=== PATIENT | male | born 1955 | race Caucasian/White ===

== ENCOUNTER 2025-01-14 10:10 | Day surgery (SDC) | payer MEDICARE, BC, SELFPAY ==
--- NOTE | 2025-01-13 06:00 | EKG_ITS ---
[facility] Test Date: 2025-01-13 Pat Name: MATTHEW CALVERT Department: Room: - Gender: Male [employer]: UTE : 1955 Requested By: Orion Castillo Order Number: [id number] Reading MD: Orion Castillo Measurements Intervals [place] Rate: 67 P: 48 UT: 172 QRS: -4 QRSD: 86 T: 51 QT: 370 QTc: 393 Interpretive Statements SINUS RHYTHM POSSIBLE ANTERIOR MYOCARDIAL INFARCTION , OF INDETERMINATE AGE Compared to ECG 06/06/2022 13:45:59 No significant changes /store/S0/[id number].pdf
[2025-01-13 14:01] LABS: INR 1.1 (0.9-1.3); Partial Thromboplastin Time 29.6 Seconds (22.0-36.0); Prothrombin Time 11.7 Seconds (9.0-12.2)
[2025-01-13 14:05] LABS: Alanine Aminotransferase 21 U/L (10-49); Albumin/Globulin Ratio 1.7 (1.2-2.2); Alkaline Phosphatase 57 U/L (46-116); Anion Gap 10 (7-16); Aspartate Amino Transferase 25 U/L (0-34); BUN/Creatinine Ratio 9 Ratio (12-20); Bilirubin,Total 0.6 mg/dL (0.3-1.2); Blood Urea Nitrogen 13 mg/dL (9-23); Calcium 10.3 mg/dL (8.3-10.6); Calcium (Corrected) 10.3 mg/dL (8.5-10.1); Carbon Dioxide 26.3 mMol/L (20.0-31.0); Chloride 105 mMol/L (98-107); Creatinine (Component) 1.5 mg/dL (0.6-1.3); Globulin 2.4 gm/dL (2.3-3.5); Glucose 80 mg/dL (74-106); Osmolality,Calculated 280 (275-295); Potassium 4.8 mMol/L (3.4-5.1); Sodium 141 mMol/L (136-145); Total Protein 6.4 gm/dL (5.7-8.2); eGFR 49 See Note
[2025-01-13 14:10] VITALS: BMI 39.1
[2025-01-14 10:50] VITALS: BP 179/83; PULSE 74; RESP 18; TEMP 36.3; O2SAT 96
[2025-01-14 11:59] VITALS: BP 142/125; PULSE 80; RESP 15; O2SAT 100
[2025-01-14 12:32] VITALS: BP 144/83; PULSE 67; RESP 22; TEMP 36.9; O2SAT 96
[2025-01-14 12:42] VITALS: BP 144/83; PULSE 67; RESP 22; O2SAT 96
[2025-01-14 12:52] VITALS: BP 150/85; PULSE 65; RESP 23; O2SAT 96
[2025-01-14 13:02] VITALS: BP 171/94; PULSE 65; RESP 20; O2SAT 96
== END 2025-01-14 13:30 | disposition home or self-care (01) ==
PROVIDERS: PCP Family Medicine; Referring Provider Specialist; Visit Provider Specialist
PROC: 0DBE8ZX Excision of Large Intestine, Via Natural or Artificial Opening Endoscopic, Diagnostic (ICD-10-PCS; CPT 45380; principal; 2025-01-14 11:30)
PROC: (CPT 43239; 2025-01-14 11:30)
DX: C18.4 Malignant neoplasm of transverse colon (principal); D12.2 Benign neoplasm of ascending colon; K56.690 Other partial intestinal obstruction; K64.9 Unspecified hemorrhoids; K62.1 Rectal polyp; C18.7 Malignant neoplasm of sigmoid colon; Z01.810 Encounter for preprocedural cardiovascular examination
CPT/HCPCS: 45385; 45381; 45380; 36415; 80053; 85610; 85730; 93005; A4649

== ENCOUNTER → 2025-01-20 | Outpatient (CLI) | payer MEDICARE, BC, SELFPAY ==
--- NOTE | 2025-01-20 16:13 | XR_ITS ---
Examination: CT abdomen and pelvis without contrast. Coronal 3-D reconstructions. Sagittal 2-D reconstructions. Date and time of exam:January 20, 2025 1711 hrs. Indications: Diagnosis malignant neoplasm of the colon today, hematochezia CTDI: vol (mGy): 17.6 DLP: (mGycm): 9 Technique: Axial images of the abdomen have been obtained, 3 mm slice thickness Intravenous contrast material has not been administered. Low dose protocols were performed. One or more of the following dose reduction techniques were used; automated exposure control, adjustment of the mA and/or KV according to patient size, use of iterative reconstruction technique. Findings: No focal liver or splenic lesions No abdominal or pelvic lymphadenopathy Cholelithiasis No pancreatic or adrenal mass Aorta normal size Severe bilateral renal parenchymal scar formation, severe atrophy left kidney Bilateral renal calculi, the largest right kidney 5 mm left kidney 4 mm Normal appendix Focal wall thickening in the transverse colon, subtle, axial image 95 Urinary bladder intact Transverse prostate dimension 5.5 cm Significant osteopenia Impression: Cholelithiasis Severe bilateral renal parenchymal scar formation Severe atrophy left kidney Bilateral nonobstructing renal calculi Normal appendix Subtle focal wall thickening in the transverse colon, axial image 95, clinical correlation advised
== END | disposition home or self-care (01) ==
PROVIDERS: PCP Family Medicine; Referring Provider Specialist; Visit Provider Specialist
DX: K80.20 Calculus of gallbladder without cholecystitis without obstruction (principal); N28.89 Other specified disorders of kidney and ureter; N20.0 Calculus of kidney; K63.89 Other specified diseases of intestine
CPT/HCPCS: 74176

== ENCOUNTER → 2025-01-21 | Outpatient (CLI) | payer MEDICARE, BC, SELFPAY ==
[2025-01-21 16:59] LABS: Basophils % (Auto) 1 % (0-2.5); Eosinophils # (Auto) 0.2 Thou/mm3 (0.0-0.5); Eosinophils % (Auto) 3 % (0-10); Immature Granulocytes % (Auto) 1 % (0-0); Immature Granulocytes Auto 0.03 Thou/mm3 (0.00-0.00); Lymphocytes # (Auto) 1.5 Thou/mm3 (1.0-4.8); Lymphocytes % (Auto) 23 % (10-50); Mean Corpuscular HGB Conc 32.5 g/dl (31.0-37.0); Mean Corpuscular Volume 80 fL (80-100); Monocytes # (Auto) 0.4 Thou/mm3 (0.0-0.8); Monocytes % (Auto) 6 % (0-12); Neutrophils # (Auto) 4.2 Thou/mm3 (1.8-7.7); Neutrophils % (Auto) 67 % (37-80); Nucleated Red Blood Cell % 0 /100 WBC (0); Platelet Count 195 Thou/mm3 (140-440); White Blood Count 6.3 Thou/mm3 (3.8-10.6)
[2025-01-21 17:06] LABS: Glucose Estimated Average 160 mg/dL (80-131); Hemoglobin A1C 7.2 % Hgb (4.8-6.0)
[2025-01-21 17:07] LABS: Alanine Aminotransferase 18 U/L (10-49); Albumin, Serum 3.9 gm/dL (3.4-4.8); Alkaline Phosphatase 54 U/L (46-116); Anion Gap 10 (7-16); Aspartate Amino Transferase 16 U/L (0-34); BUN/Creatinine Ratio 13 Ratio (12-20); Bilirubin,Total 0.6 mg/dL (0.3-1.2); Blood Urea Nitrogen 21 mg/dL (9-23); Calcium (Corrected) 9.1 mg/dL (8.5-10.1); Carbon Dioxide 24.4 mMol/L (20.0-31.0); Chloride 109 mMol/L (98-107); Creatinine (Component) 1.6 mg/dL (0.6-1.3); Glucose 221 mg/dL (74-106); Osmolality,Calculated 294 (275-295); Potassium 4.5 mMol/L (3.4-5.1); Sodium 143 mMol/L (136-145); Total Protein 5.9 gm/dL (5.7-8.2); eGFR 46 See Note
== END | disposition home or self-care (01) ==
LOC: COPL 15:50
PROVIDERS: PCP Family Medicine; Referring Provider Family Medicine; Visit Provider Family Medicine
DX: E11.65 Type 2 diabetes mellitus with hyperglycemia (principal); D50.8 Other iron deficiency anemias; E11.22 Type 2 diabetes mellitus with diabetic chronic kidney disease; N18.2 Chronic kidney disease, stage 2 (mild)
CPT/HCPCS: 36415; 80053; 83036; 85025

== ENCOUNTER → 2025-02-16 | Outpatient (CLI) | payer MEDICARE, BC, SELFPAY ==
[2025-02-16 17:34] LABS: Basophils % (Auto) 1 % (0-2.5); Eosinophils # (Auto) 0.3 Thou/mm3 (0.0-0.5); Eosinophils % (Auto) 4 % (0-10); Hematocrit 40.1 % (41.0-53.0); Immature Granulocytes % (Auto) 0 % (0-0); Immature Granulocytes Auto 0.02 Thou/mm3 (0.00-0.00); Lymphocytes # (Auto) 1.4 Thou/mm3 (1.0-4.8); Lymphocytes % (Auto) 21 % (10-50); Mean Corpuscular HGB Conc 32.4 g/dl (31.0-37.0); Mean Corpuscular Hemoglobin 26.3 pg (25.0-35.0); Mean Corpuscular Volume 81 fL (80-100); Monocytes # (Auto) 0.4 Thou/mm3 (0.0-0.8); Monocytes % (Auto) 6 % (0-12); Neutrophils # (Auto) 4.4 Thou/mm3 (1.8-7.7); Neutrophils % (Auto) 69 % (37-80); Nucleated Red Blood Cell % 0 /100 WBC (0); Platelet Count 199 Thou/mm3 (140-440); RDW Standard Deviation 48.6 fL (35.1-43.9); Red Blood Count 4.95 Miln/mm3 (4.50-5.90); White Blood Count 6.5 Thou/mm3 (3.8-10.6)
[2025-02-16 17:44] LABS: Prothrombin Time 10.8 Seconds (9.0-12.2)
[2025-02-16 17:52] LABS: Alanine Aminotransferase 15 U/L (10-49); Albumin, Serum 3.8 gm/dL (3.4-4.8); Albumin/Globulin Ratio 1.7 (1.2-2.2); Alkaline Phosphatase 61 U/L (46-116); Anion Gap 10 (7-16); Aspartate Amino Transferase 17 U/L (0-34); BUN/Creatinine Ratio 11 Ratio (12-20); Bilirubin,Total 0.9 mg/dL (0.3-1.2); Blood Urea Nitrogen 20 mg/dL (9-23); Calcium 9.7 mg/dL (8.3-10.6); Calcium (Corrected) 9.9 mg/dL (8.5-10.1); Carbon Dioxide 25.5 mMol/L (20.0-31.0); Chloride 104 mMol/L (98-107); Creatinine (Component) 1.8 mg/dL (0.6-1.3); Globulin 2.2 gm/dL (2.3-3.5); Glucose 175 mg/dL (74-106); Osmolality,Calculated 284 (275-295); Potassium 4.7 mMol/L (3.4-5.1); Sodium 139 mMol/L (136-145); eGFR 40 See Note
[2025-02-16 17:55] LABS: Carcinoembryonic Antigen 23.9 ng/mL (0.0-5.0)
== END | disposition home or self-care (01) ==
LOC: COPL 16:36
PROVIDERS: PCP Family Medicine; Referring Provider Family Medicine; Visit Provider Family Medicine
DX: C18.9 Malignant neoplasm of colon, unspecified (principal); E11.65 Type 2 diabetes mellitus with hyperglycemia; I12.9 Hypertensive chronic kidney disease with stage 1 through stage 4 chronic kidney disease, or unspecified chronic kidney disease; N18.2 Chronic kidney disease, stage 2 (mild); I82.593 Chronic embolism and thrombosis of other specified deep vein of lower extremity, bilateral; E11.22 Type 2 diabetes mellitus with diabetic chronic kidney disease
CPT/HCPCS: 36415; 80053; 82378; 85025; 85610; 85730

== ENCOUNTER 2025-04-21 08:51 | Outpatient (RCR) | payer MEDICARE, BC, SELFPAY ==
--- NOTE | 2025-04-24 22:36 | CTCCONSULT_ITS ---
Patient: MATTHEW COULTER : 1955 MR#: [id number] Page 4 of 7 CONSULTATION NOTE DATE OF CONSULTATION: 04/21/2025 NAME: MATTHEW COULTER ACCOUNT: [id number] : 1955 AGE: 69 REFERRING PHYSICIAN: Aileen Krishnamurthy MD PRIMARY PHYSICIAN: Aileen Krishnamurthy MD REASON FOR VISIT: Colon and rectal adenocarcinoma ONCOLOGY HISTORY: DIAGNOSIS: Malignant neoplasm of rectum [ICD10] C20 DATE OF DIAGNOSIS: 03/02/2025 STAGE/TNM: Stage 4 TREATMENT HISTORY: Care?Plan Start?Date Cycle Day Intent Rectal?[place]?trial?FOLFOX?neoadjuvant 04/21/2025 1 14 Induction-Primary HISTORY OF PRESENT ILLNESS: 69-year-old male Subjective: Chief Complaint Newly diagnosed synchronous transverse colon and rectal adenocarcinoma, lesion on right ear History of Present Illness Mr. Coulter, a 69-year-old male, presents with newly diagnosed synchronous transverse colon and rectal adenocarcinoma. He was recently diagnosed following a colonoscopy on 01/14/25 that revealed an ulcerated, partially obstructing large mass in the transverse colon and sigmoid colon, 14 centimeters from the anal verge. The patient underwent an exploratory laparoscopy with flexible sigmoidoscopy on 03/02/25, which discovered that the sigmoid mass was in the midrectum, leading to the operation being aborted. Subsequent imaging studies, including a CT scan on 03/02/25 and an MRI of the pelvis on 03/25/25, confirmed synchronous colon cancer in the upper rectum and mid-transverse colon, both spanning approximately 5 centimeters. The MRI showed rectal cancer stage [id number], with probable involvement of the rectal-sigmoid junction, clear mesorectal fascia, and absent sphincter involvement. Mr. Coulter also reports a lesion on his right ear, which was previously diagnosed as a fungal infection, though the final pathology report is not yet available. He is currently taking Mounjaro for diabetes management and weight loss, with the dosage being gradually increased. The patient reports that his diabetes is well-controlled, and his blood pressure is not bad. Functionally, Mr. Coulter is able to walk with the assistance of a walker due to knee issues. He has been non-mobile for many years before hip replacements, which has made it challenging to regain core strength. 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 The patient has a caregiver at home for 4 hours a week, assisting with hydrotherapy, circulation, blood pressure checks, medication management, and pill organization. He reports experiencing nausea as a side effect of Mounjaro and Xepi. Medications and Supplements - Mounjaro - Gradually increasing dosage - Causing weight loss - Causes nausea - Ozempic - Discontinued. Changed to Mounjaro. - Xepi - Causes nausea Review of Systems General: Positive for weight loss. Gastrointestinal: Positive for nausea. Musculoskeletal: Positive for difficulty walking, uses walker. Objective: Physical Examination Musculoskeletal: Patient is able to walk with the help of a walker. Laboratory, Imaging, and Diagnostic Test Results - Colonoscopy (01/14/2025): Ulcerated partially obstructing large mass in the transverse colon and sigmoid colon, 14 centimeters from the anal verge - CT scan (03/02/2025): - Synchronous colon cancer in the upper rectum and mid-transverse colon, both spanning approximately 5 centimeters - Few subcentimeter mesorectal lymph nodes adjacent to the primary upper rectal mass - CT chest: No evidence of disease, indeterminate enlarged right hilar lymph nodes, and pulmonary micronodules - MRI pelvis (03/25/2025): - Rectal cancer stage [id number] - Tumorous sigmoid probably involvement of the rectal-sigmoid junction - Mesorectal fascia is clear - Sphincter involvement is absent OTHER MEDICAL HISTORY/CONDITIONS: Colon cancer / rectal cancer Diabetes Hyperlipidemia HTN Blood clooting disorder Diabetes Anemia Hepatitis A - dx age 19 CVA - PE - 2002 DVT - 1985; 2002 Sleep apnea Neel hi replacement ; 2021 Kidney stent - 2016 FAMILY HISTORY: Mother:?Uterine/bladder?-?dx?75 Cancer History:?Mat grandmother - breast - dx age 90; mat aunt- colon-dx 60 SOCIAL HISTORY: 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 Tobacco?Use:?Denies ETOH?Use:?Denies Drug?Note:?Denies Social?History?Note:?Lives?with? MEDICATIONS: 1. acetaminophen - 325 mg 2 tab Every 6 Hours 2. ascorbic acid (vitamin C) - 1,000 mg 1 tab Daily 3. cholecalciferol (vitamin D3) - 2,000 unit 1 tab Daily 4. CoQ10 SG 100 - 100-100 mg-unit 2 Capsule Daily 5. Farxiga - 10 mg 1 tab Daily 6. ferrous sulfate - 325 mg (65 mg iron) 1 tab Twice a Day 7. glyBURIDE - 5 mg 1 tab Twice a Day 8. Lipitor - 80 mg 1 tab Daily 9. lisinopril - 40 mg 1 tab Daily 10. melatonin - 5 mg 1 tab Every day before sleep 11. metFORMIN - 500 mg 1 tab Three times a day 12. Mounjaro - 10 mg/0.5 mL As directed 13. multivitamin - 1 tab Daily 14. omega 7-whv-ikx-fish oil - 1,000 mg (120 mg-180 mg) 1 Capsule Daily 15. Xarelto - 2.5 mg 1 tab Twice a Day Medications Last Reconciled by Palmira Acevedo RN on 04/21/2025 ALLERGIES: iv contrast REVIEW OF SYSTEMS: A complete 14-point review of systems was performed and is negative except as noted in interval history. PHYSICAL EXAMINATION: VITAL SIGNS: Temperature?99.1, B/P?170/79, Height?69?inches, Oxygen?Saturation?94% Weight?280?lbs PAIN: 0 - No pain GENERAL APPEARANCE: Appears well, in no apparent distress, appropriately interactive. HEENT: Normocephalic, no temporal wasting, normal conjunctiva, no scleral icterus, normal hearing, lips without lesions, neck normal range of motion. CARDIOVASCULAR: Not assessed. PULMONARY: Normal respiratory effort, no respiratory distress or use of accessory muscles, speaking in full sentences, no tachypnea. EXTREMITIES: No pedal edema or cyanosis. SKIN: Normal skin appearance. NEUROLOGIC: Alert and oriented x4. PSHYCHIATRIC: Appropriate affect, mood normal, behavior normal, intact thought and speech. LABORATORY DATA: I have personally reviewed and interpreted each of the patient?s relevant lab tests, abnormal findings are below: Date 01/21/25 02/16/25 ??WHITE?BLOOD?COUNT?(Thou/mm3) 6.3 6.5 ??RED?BLOOD?COUNT?(Miln/mm3) 5.00 4.95 ??HEMOGLOBIN?(gm/dl) 13.0?L 13.0?L ??HEMATOCRIT?(%) 40.0?L 40.1?L ??PLATELET?COUNT?(Thou/mm3) 195 199 ??NEUTROPHILS?%,?AUTO?(%) 67 69 ??LYMPH?%,?AUTO?(%) 23 21 ??NEUTROPHILS,?AUTO?(Thou/mm3) 4.2 4.4 ??GLUCOSE,RANDOM?(mg/dL) ? 175?H ??BLOOD?UREA?NITROGEN?(mg/dL) ? 20 ??CREATININE?(mg/dL) ? 1.80?H ??SODIUM?(mmol/L) ? 139 ??POTASSIUM?(mmol/L) ? 4.7 ??CHLORIDE?(mmol/L) ? 104 ??CrCl?(CandG)?(ml/min) ? 50.67 ??AST/SGOT?(Unit/L) ? 17 ??ALT/SGPT?(Unit/L) ? 15 ??ALKALINE?PHOSPHATASE?(Unit/L) ? 61 ??BILIRUBIN,?TOTAL?(mg/dL) ? 0.9 ??PROTEIN?TOTAL?(gm/dl) ? 6.0 ??ALBUMIN,?SERUM?(gm/dl) ? 3.8 ??GLOBULIN?(gm/dl) ? 2.2?L ??ALBUMIN/GLOBULIN?RATIO ? 1.7 ??CALCIUM,?SERUM?(mg/dL) ? 9.7 ??CALCIUM?SERUM?(CORRECTED)?(mg/dL) ? 9.9 ??CEA?(O*)?(ng/ml) ? 23.9?H ASSESSMENT/PLAN: Assessment and Plan: 69-year-old male Mr. Coulter with newly diagnosed synchronous transverse colon and rectal adenocarcinoma, presenting for neoadjuvant chemotherapy planning and management of comorbidities. Synchronous transverse colon and rectal adenocarcinoma Assessment: Patient was diagnosed with synchronous colon cancer in the upper rectum and mid-transverse colon, both spanning approximately 5 centimeters. Colonoscopy on 01/14/25 revealed ulcerated partially obstructing large masses in the transverse colon and sigmoid colon. CT scan on 03/02/25 confirmed the diagnosis and showed few subcentimeter mesorectal lymph nodes adjacent to the primary upper rectal mass. MRI pelvis on 03/25/25 staged the rectal cancer as [id number], noting tumorous sigmoid involvement of the rectal-sigmoid junction, clear mesorectal fascia, and absent sphincter involvement. Exploratory laparoscopy on 03/02/25 discovered that the sigmoid mass was in the midrectum, leading to of the planned extended left colectomy. Plan: - Initiate neoadjuvant chemotherapy with FOLFOX regimen - Schedule port-catheter placement - Arrange chemo-education session - Provide extensive counseling for treatment adherence - Prescribe magic mouthwash (cheaper version covered by insurance) - Administer Amilacream and anti-emetics before chemotherapy - Advise low-carb, protein and fat-rich diet Diabetes mellitus, type 2 Assessment: Patient has well-controlled diabetes. Recently transitioned from Ozempic to Mounjaro for diabetes management and weight loss. Plan: - Continue Mounjaro, gradually increasing dosage - Monitor blood glucose levels Hypertension Assessment: Patient's blood pressure is reported as not bad, suggesting relatively controlled hypertension. Plan: - Continue current antihypertensive regimen (specific medications not mentioned) - Monitor blood pressure regularly Mobility issues Assessment: Patient uses a walker due to knee issues. History of prolonged immobility before hip replacements has led to difficulty regaining core strength. Plan: - Refer for physical therapy (consider in-home or outpatient options) - Encourage regular exercise as tolerated Right ear lesion Assessment: Patient reports a lesion on the right ear, previously diagnosed as a fungal infection. Final pathology report is pending. Plan: - Obtain final pathology report - Place urgent referral to dermatology for possible biopsy and treatment ORDERS: Order # Description [id number] CBC + Comprehensive Metabolic Panel + [facility] [id number] Lab Appointment [id number] CBC + Comprehensive Metabolic Panel + [facility] [id number] Lab Appointment [id number] CBC + Comprehensive Metabolic Panel + [facility] [id number] Lab Appointment [id number] CBC + Comprehensive Metabolic Panel + [facility] [id number] Lab Appointment [id number] CBC + Comprehensive Metabolic Panel + [facility] [id number] Lab Appointment RETURN TO CLINIC: BILLING AND COMPLIANCE: I reviewed external records from providers outside my specialty as summarized above. I spent a total of 50 minutes on this patient?s care on the day of their visit excluding time spent related to any billed procedures. This time includes time spent with the patient as well as time spent documenting in the medical record, reviewing patients records and tests, obtaining history, placing orders, communicating with other healthcare professionals, counseling the patient, family or caregiver, and/or care coordination for the diagnoses above. Electronically Signed by: Carlito Alberto MD T: 10:33 PM CC: PCP: Aileen Krishnamurthy Referring: Aileen Krishnamurthy This document was completed utilizing speech recognition software. Grammatical errors, random word insertions, pronoun errors, and incomplete sentences are an occasional consequence of this system due to software limitations, ambient noise, and hardware issues. Any formal questions or concerns about the content, text or information contained within the body of this dictation should be directly addressed to the provider for clarification.
== END 2025-04-23 23:59 | disposition home or self-care (01) ==
LOC: SCTC 08:51
PROVIDERS: PCP Family Medicine; Referring Provider Family Medicine; Visit Provider Internal Medicine Hematology & Oncology
DX: C19 Malignant neoplasm of rectosigmoid junction (principal); C18.4 Malignant neoplasm of transverse colon; E11.9 Type 2 diabetes mellitus without complications; Z79.85 Long-term (current) use of injectable non-insulin antidiabetic drugs; I10 Essential (primary) hypertension; L98.8 Other specified disorders of the skin and subcutaneous tissue
CPT/HCPCS: 99213; G0463

== ENCOUNTER 2025-05-02 08:33 | Outpatient (CLI) | payer MEDICARE, BC, SELFPAY ==
[2025-04-29 12:50] LABS: Basophils % (Auto) 0 % (0-2.5); Eosinophils # (Auto) 0.2 Thou/mm3 (0.0-0.5); Eosinophils % (Auto) 3 % (0-10); Hematocrit 36.7 % (41.0-53.0); Hemoglobin 12.3 g/dL (13.5-16.0); Immature Granulocytes % (Auto) 0 % (0-0); Immature Granulocytes Auto 0.01 Thou/mm3 (0.00-0.00); Lymphocytes # (Auto) 1.4 Thou/mm3 (1.0-4.8); Lymphocytes % (Auto) 22 % (10-50); Mean Corpuscular HGB Conc 33.5 g/dl (31.0-37.0); Mean Corpuscular Hemoglobin 25.8 pg (25.0-35.0); Mean Corpuscular Volume 77 fL (80-100); Monocytes # (Auto) 0.4 Thou/mm3 (0.0-0.8); Monocytes % (Auto) 5 % (0-12); Neutrophils # (Auto) 4.5 Thou/mm3 (1.8-7.7); Neutrophils % (Auto) 70 % (37-80); Nucleated Red Blood Cell % 0 /100 WBC (0); Platelet Count 201 Thou/mm3 (140-440); RDW Standard Deviation 45.9 fL (35.1-43.9); Red Blood Count 4.76 Miln/mm3 (4.50-5.90); White Blood Count 6.5 Thou/mm3 (3.8-10.6)
[2025-04-29 12:57] LABS: Partial Thromboplastin Time 27.7 Seconds (22.0-36.0); Prothrombin Time 10.9 Seconds (9.0-12.2)
[2025-05-02] VITALS (11 sets, daily range): BP systolic 147–174; BP diastolic 68–88; PULSE 60–75; RESP 12–26; TEMP 36.2–36.3; O2SAT 92–99; BMI 25.4
--- NOTE | 2025-05-02 09:30 | XR_ITS ---
Examination: IR venous implantation Port-A-Cath Ultrasound-guided needle placement left internal jugular vein. Fluoroscopy AP Chest, portable single view Exam date and time: May 02, 2025 0955 hours INDICATIONS: Diagnosis malignant neoplasm of the colon, coronal halfway intravenous chemotherapy. Informed consent provided Technique: A timeout was completed, verifying correct patient, procedure, site, positioning, and special equipment if applicable The patient was placed in a dependent position appropriate for central line placement based on the vein to be cannulated. The patient's left neck was prepped and draped in sterile fashion. Maximum Sterile Barrier Technique used including cap, mask, sterile gown, sterile gloves, and sterile full body drape. If ultrasound technique used: sterile gel and sterile probe covers. Hand Hygiene performed using proper scrub, soap and water, or alcohol-based hand rub. Site right portable apparatus utilized to confirm patency of the left internal jugular vein Utilizing ultrasonographic guidance successful 21-gauge needle puncture into the left internal jugular vein Ultrasound images were recorded and stored. Successful micropuncture with a 21-gauge needle was performed. 0.18 wire guide was introduced into the IVC under fluoroscopic guidance. The wires is then exchanged for a 0.25 J-wire guide placed in the vena cava. Blunt dissection utilized to form Port-A-Cath pocket in the subcutaneous tissue upper left chest 25 cm 8 Malagasy Port-A-Cath line then connected to a Port-A-Cath reservoir in place to a venous sheath into the superior vena cava in proper position The attending radiologist was present for the entire procedure Estimated blood loss2 cc. Findings: Under fluoroscopy, the tip of the catheter is in good position in the vena cava. Portable chest x-ray, post line placement, as ordered. Impression: Successful ultrasound-guided needle placement left internal jugular vein. Successful IR venous implantation Port-A-Cath. Fluoroscopy 0.4 minute radiation dose 5.27 milligray 1 spot fluoroscopic chest film. AP portable chest completion procedure demonstrates satisfactory position Port-A-Cath tip SVC. May use Port-A-Cath
[2025-05-02] MEDS: ceFAZolin/D5W 1 GM IVPB 1 GM/50 ML BAG IV ×2 (10:30→11:02)
[2025-05-02] MEDS: LIDOCAINE 1% W/EPI 1:100K 20 ML VIAL INFL (10:31)
[2025-05-02] MEDS: LIDOCAINE HCL 1% 20 ML VIAL INFL (10:31)
[2025-05-02] MEDS: HEPARIN SOD LOCK SYR 100 UNIT/ML 500 UNIT IV (10:31)
[2025-05-02] MEDS: fentaNYL CIT INJ 50 mCg/ML AMP 2ML 125 MCG IVP (11:04)
--- NOTE | 2025-05-02 15:01 | PC.NURSE ---
1256 patient is awake alert, breahting unlabored, s/p port placement, dressing to left upper chest dry with no bleeding, patient dressed in own clothe, in personal wheelchair and is going to bathroom to void, report received from Bernice PIPER, patient ready to go home and will be receiving discharge instructions after going to bathroom. IV has been removed by bernice piper. patient to continue xarelto friday. 1315 patient is awake alert, breathing unlabored, dressing dry with no bleeding, discharge instrucitons given to patient and spouse, patient discharged home in personal wheelchair with all belongings.
== END 2025-05-02 13:15 | disposition home or self-care (01) ==
PROVIDERS: Radiology Diagnostic Radiology; PCP Internal Medicine Hematology & Oncology; Referring Provider Internal Medicine Hematology & Oncology; Visit Provider Internal Medicine Hematology & Oncology
DX: I82.402 Acute embolism and thrombosis of unspecified deep veins of left lower extremity (principal); C20 Malignant neoplasm of rectum; Z01.812 Encounter for preprocedural laboratory examination
CPT/HCPCS: 36558; 36415; 76937; 77001; 85025; 85610; 85730; C1769; C1788; C1894; J0689; J1642; J3010; J3490; J7050

== ENCOUNTER 2025-05-23 08:20 | Outpatient (RCR) | payer MEDICARE, BC, SELFPAY ==
[2025-05-06 11:07] LABS: Basophils % (Auto) 0 % (0-2.5); Eosinophils # (Auto) 0.2 Thou/mm3 (0.0-0.5); Eosinophils % (Auto) 3 % (0-10); Hematocrit 36.8 % (41.0-53.0); Immature Granulocytes % (Auto) 0 % (0-0); Immature Granulocytes Auto 0.02 Thou/mm3 (0.00-0.00); Lymphocytes # (Auto) 1.3 Thou/mm3 (1.0-4.8); Lymphocytes % (Auto) 23 % (10-50); Mean Corpuscular HGB Conc 32.6 g/dl (31.0-37.0); Mean Corpuscular Hemoglobin 25.7 pg (25.0-35.0); Mean Corpuscular Volume 79 fL (80-100); Monocytes # (Auto) 0.4 Thou/mm3 (0.0-0.8); Monocytes % (Auto) 7 % (0-12); Neutrophils # (Auto) 3.8 Thou/mm3 (1.8-7.7); Neutrophils % (Auto) 67 % (37-80); Nucleated Red Blood Cell % 0 /100 WBC (0); Platelet Count 171 Thou/mm3 (140-440); RDW Standard Deviation 46.9 fL (35.1-43.9); Red Blood Count 4.67 Miln/mm3 (4.50-5.90); White Blood Count 5.6 Thou/mm3 (3.8-10.6)
[2025-05-06 11:31] LABS: Alanine Aminotransferase 16 U/L (10-49); Albumin, Serum 3.9 gm/dL (3.4-4.8); Alkaline Phosphatase 61 U/L (46-116); Anion Gap 12 (7-16); Aspartate Amino Transferase 21 U/L (0-34); BUN/Creatinine Ratio 15 Ratio (12-20); Bilirubin,Total 0.8 mg/dL (0.3-1.2); Blood Urea Nitrogen 21 mg/dL (9-23); Calcium 9.2 mg/dL (8.3-10.6); Calcium (Corrected) 9.3 mg/dL (8.5-10.1); Chloride 107 mMol/L (98-107); Creatinine (Component) 1.4 mg/dL (0.6-1.3); Glucose 154 mg/dL (74-106); Osmolality,Calculated 285 (275-295); Potassium 4.4 mMol/L (3.4-5.1); Sodium 140 mMol/L (136-145); Total Protein 5.9 gm/dL (5.7-8.2); eGFR 54 See Note
[2025-05-06 11:34] LABS: Carcinoembryonic Antigen 15.7 ng/mL (0.0-5.0)
[2025-05-09 08:35] LABS: Misc Send Out* See Sep Rpt
[2025-05-20 09:45] LABS: Basophils % (Auto) 0 % (0-2.5); Eosinophils # (Auto) 0.1 Thou/mm3 (0.0-0.5); Eosinophils % (Auto) 3 % (0-10); Hematocrit 33.8 % (41.0-53.0); Hemoglobin 11.2 g/dL (13.5-16.0); Immature Granulocytes % (Auto) 0 % (0-0); Immature Granulocytes Auto 0.01 Thou/mm3 (0.00-0.00); Lymphocytes % (Auto) 28 % (10-50); Mean Corpuscular HGB Conc 33.1 g/dl (31.0-37.0); Mean Corpuscular Volume 78 fL (80-100); Monocytes # (Auto) 0.3 Thou/mm3 (0.0-0.8); Monocytes % (Auto) 7 % (0-12); Neutrophils # (Auto) 2.3 Thou/mm3 (1.8-7.7); Neutrophils % (Auto) 61 % (37-80); Nucleated Red Blood Cell % 0 /100 WBC (0); Platelet Count 133 Thou/mm3 (140-440); RDW Standard Deviation 45.1 fL (35.1-43.9); Red Blood Count 4.31 Miln/mm3 (4.50-5.90); White Blood Count 3.7 Thou/mm3 (3.8-10.6)
[2025-05-20 10:07] LABS: Alanine Aminotransferase 21 U/L (10-49); Alkaline Phosphatase 51 U/L (46-116); Anion Gap 10 (7-16); Aspartate Amino Transferase 20 U/L (0-34); BUN/Creatinine Ratio 14 Ratio (12-20); Bilirubin,Total 0.6 mg/dL (0.3-1.2); Blood Urea Nitrogen 23 mg/dL (9-23); Carbon Dioxide 19.7 mMol/L (20.0-31.0); Chloride 108 mMol/L (98-107); Creatinine (Component) 1.6 mg/dL (0.6-1.3); Glucose 234 mg/dL (74-106); Osmolality,Calculated 287 (275-295); Potassium 4.5 mMol/L (3.4-5.1); Sodium 138 mMol/L (136-145); eGFR 46 See Note
[2025-05-20 10:08] LABS: Carcinoembryonic Antigen 13.1 ng/mL (0.0-5.0)
[2025-05-23 09:30] LABS: Alanine Aminotransferase 22 U/L (10-49); Albumin, Serum 3.9 gm/dL (3.4-4.8); Alkaline Phosphatase 54 U/L (46-116); Anion Gap 9 (7-16); Aspartate Amino Transferase 24 U/L (0-34); BUN/Creatinine Ratio 11 Ratio (12-20); Bilirubin,Total 0.7 mg/dL (0.3-1.2); Blood Urea Nitrogen 17 mg/dL (9-23); Calcium 9.4 mg/dL (8.3-10.6); Calcium (Corrected) 9.5 mg/dL (8.5-10.1); Carbon Dioxide 21.3 mMol/L (20.0-31.0); Chloride 110 mMol/L (98-107); Creatinine (Component) 1.5 mg/dL (0.6-1.3); Glucose 157 mg/dL (74-106); Osmolality,Calculated 283 (275-295); Potassium 4.3 mMol/L (3.4-5.1); Sodium 140 mMol/L (136-145); Total Protein 5.9 gm/dL (5.7-8.2); eGFR 49 See Note
== END 2025-05-23 23:59 | disposition home or self-care (01) ==
LOC: SCTC 08:20
PROVIDERS: PCP Family Medicine; Referring Provider Internal Medicine Hematology & Oncology; Visit Provider Internal Medicine Hematology & Oncology
DX: Z51.11 Encounter for antineoplastic chemotherapy (principal); C18.4 Malignant neoplasm of transverse colon; C20 Malignant neoplasm of rectum; E11.9 Type 2 diabetes mellitus without complications; I10 Essential (primary) hypertension; H93.8X1 Other specified disorders of right ear
CPT/HCPCS: 36591; 80053; 82378; 84450; 85025; 96367; 96368; 96411; 96413; 96415; 96416; A4216; J0640; J1100; J1453; J1642; J2405; J7030; J7040; J7050; J7060; J9190; J9263

== ENCOUNTER 2025-06-22 13:45 | Outpatient (RCR) | payer MEDICARE, BC, SELFPAY ==
--- NOTE | 2025-06-01 06:10 | CTCFLWUP_ITS ---
Patient: MATTHEW CALVERT : 1955 Page 5 of 6 FOLLOW UP NOTE DATE OF SERVICE: 05/31/2025 NAME: MATTHEW CALVERT ACCOUNT: [id number] : 1955 AGE: 69 INTERVAL HISTORY: Patient is here for follow up. Patient have chosen not to see dermatology and do not want to keep appointment. Cont to work as dentist. ONCOLOGY HISTORY: DIAGNOSIS: Malignant neoplasm of rectum [ICD10] C20 DATE OF DIAGNOSIS: 03/02/2025 STAGE/TNM: Stage 4 TREATMENT HISTORY: Care?Plan Start?Date Cycle Day Intent Rectal?[place]?trial?FOLFOX?neoadjuvant 05/09/2025 1 14 Induction-Primary HISTORY OF PRESENT ILLNESS: Subjective: Chief Complaint Newly diagnosed synchronous transverse colon and rectal adenocarcinoma, lesion on right ear History of Present Illness Mr. Calvert, a 69-year-old male, presents with newly diagnosed synchronous transverse colon and rectal adenocarcinoma. He was recently diagnosed following a colonoscopy on 01/14/25 that revealed an ulcerated, partially obstructing large mass in the transverse colon and sigmoid colon, 14 centimeters from the anal verge. The patient underwent an exploratory laparoscopy with flexible sigmoidoscopy on 03/02/25, which discovered that the sigmoid mass was in the midrectum, leading to the operation being aborted. Subsequent imaging studies, including a CT scan on 03/02/25 and an MRI of the pelvis on 03/25/25, confirmed synchronous colon cancer in the upper rectum and mid-transverse colon, both spanning approximately 5 centimeters. The MRI showed rectal cancer stage [id number], with probable involvement of the rectal-sigmoid junction, clear mesorectal fascia, and absent sphincter involvement. Mr. Calvert also reports a lesion on his right ear, which was previously diagnosed as a fungal infection, though the final pathology report is not yet available. He is currently taking Mounjaro for diabetes management and weight loss, with the dosage being gradually increased. The patient reports that his diabetes is well-controlled, and his blood pressure is not bad. Functionally, Mr. Calvert is able to walk with the assistance of a walker due to knee issues. He has been non-mobile for many years before hip replacements, which has made it challenging to regain core strength. 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 The patient has a caregiver at home for 4 hours a week, assisting with hydrotherapy, circulation, blood pressure checks, medication management, and pill organization. He reports experiencing nausea as a side effect of Mounjaro and Xepi. Medications and Supplements - Mounjaro - Gradually increasing dosage - Causing weight loss - Causes nausea - Ozempic - Discontinued. Changed to Mounjaro. - Xepi - Causes nausea Review of Systems General: Positive for weight loss. Gastrointestinal: Positive for nausea. Musculoskeletal: Positive for difficulty walking, uses walker. Objective: Physical Examination Musculoskeletal: Patient is able to walk with the help of a walker. Laboratory, Imaging, and Diagnostic Test Results - Colonoscopy (01/14/2025): Ulcerated partially obstructing large mass in the transverse colon and sigmoid colon, 14 centimeters from the anal verge - CT scan (03/02/2025): - Synchronous colon cancer in the upper rectum and mid-transverse colon, both spanning approximately 5 centimeters - Few subcentimeter mesorectal lymph nodes adjacent to the primary upper rectal mass - CT chest: No evidence of disease, indeterminate enlarged right hilar lymph nodes, and pulmonary micronodules - MRI pelvis (03/25/2025): - Rectal cancer stage [id number] - Tumorous sigmoid probably involvement of the rectal-sigmoid junction - Mesorectal fascia is clear - Sphincter involvement is absent OTHER MEDICAL HISTORY/CONDITIONS: Colon cancer / rectal cancer Diabetes Hyperlipidemia HTN Blood clooting disorder Diabetes Anemia Hepatitis A - dx age 19 CVA - PE - 2002 DVT - 1985; 2002 Sleep apnea Neel hi replacement ; 2021 Kidney stent - 2016 FAMILY HISTORY: Mother:?Uterine/bladder?-?dx?75 Cancer History:?Mat grandmother - breast - dx age 90; mat aunt- colon-dx 60 SOCIAL HISTORY: 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 Tobacco?Use:?Denies ETOH?Use:?Denies Drug?Note:?Denies Social?History?Note:?Lives?with? MEDICATIONS: 1. acetaminophen - 325 mg 2 tab Every 6 Hours 2. ascorbic acid (vitamin C) - 1,000 mg 1 tab Daily 3. cholecalciferol (vitamin D3) - 2,000 unit 1 tab Daily 4. Compazine - 5 mg 5 mg Daily 5. CoQ10 SG 100 - 100-100 mg-unit 2 Capsule Daily 6. Farxiga - 10 mg 1 tab Daily 7. ferrous sulfate - 325 mg (65 mg iron) 1 tab Twice a Day 8. glyBURIDE - 5 mg 1 tab Twice a Day 9. Lidocaine Viscous - 2 % 10 mL Daily 10. Lipitor - 80 mg 1 tab Daily 11. lisinopril - 40 mg 1 tab Daily 12. Maalox Advanced - 200-200-20 mg/5 mL 20 mL Daily 13. melatonin - 5 mg 1 tab Every day before sleep 14. metFORMIN - 500 mg 1 tab Three times a day 15. Mounjaro - 10 mg/0.5 mL As directed 16. multivitamin - 1 tab Daily 17. nystatin - 100,000 unit/mL 10 mL Daily 18. omega 0-vrg-llj-fish oil - 1,000 mg (120 mg-180 mg) 1 Capsule Daily 19. ondansetron - 8 mg 8 mg Daily 20. Xarelto - 2.5 mg 1 tab Twice a Day Medications Last Reconciled by Fernanda Pillai MA on 05/31/2025 ALLERGIES: iv contrast REVIEW OF SYSTEMS: A complete 14-point review of systems was performed and is negative except as noted in interval history. PHYSICAL EXAMINATION: VITAL SIGNS: Temperature?101.1, B/P?121/73, Oxygen?Saturation?97% PAIN: 0 - No pain ECOG Performance Status: 2 - Symptomatic; ambulatory; capable of self-care; >50% of waking hrs. not in bed GENERAL APPEARANCE: Appears well, in no apparent distress, appropriately interactive. HEENT: Normocephalic, no temporal wasting, normal conjunctiva, no scleral icterus, normal hearing, lips without lesions, neck normal range of motion. CARDIOVASCULAR: Not assessed. PULMONARY: Normal respiratory effort, no respiratory distress or use of accessory muscles, speaking in full sentences, no tachypnea. EXTREMITIES: No pedal edema or cyanosis. SKIN: Normal skin appearance. NEUROLOGIC: Alert and oriented x4. PSHYCHIATRIC: Appropriate affect, mood normal, behavior normal, intact thought and speech. LABORATORY DATA: I have personally reviewed and interpreted each of the patient?s relevant lab tests, abnormal findings are below: Date 05/20/25 05/23/25 ??WHITE?BLOOD?COUNT?(Thou/mm3) 3.7?L ? ??RED?BLOOD?COUNT?(Miln/mm3) 4.31?L ? ??HEMOGLOBIN?(gm/dl) 11.2?L ? ??HEMATOCRIT?(%) 33.8?L ? ??PLATELET?COUNT?(Thou/mm3) 133?L ? ??NEUTROPHILS?%,?AUTO?(%) 61 ? ??LYMPH?%,?AUTO?(%) 28 ? ??NEUTROPHILS,?AUTO?(Thou/mm3) 2.3 ? ??GLUCOSE,RANDOM?(mg/dL) 234?H 157?H ??BLOOD?UREA?NITROGEN?(mg/dL) 23 17 ??CREATININE?(mg/dL) 1.60?H 1.50?H ??SODIUM?(mmol/L) 138 140 ??POTASSIUM?(mmol/L) 4.5 4.3 ??CHLORIDE?(mmol/L) 108?H 110?H ??CrCl?(CandG)?(ml/min) 54.09 57.34 ??AST/SGOT?(Unit/L) 20 24 ??ALT/SGPT?(Unit/L) 21 22 ??ALKALINE?PHOSPHATASE?(Unit/L) 51 54 ??BILIRUBIN,?TOTAL?(mg/dL) 0.6 0.7 ??PROTEIN?TOTAL?(gm/dl) 6.0 5.9 ??ALBUMIN,?SERUM?(gm/dl) 4.0 3.9 ??GLOBULIN?(gm/dl) 2.0?L 2.0?L ??ALBUMIN/GLOBULIN?RATIO 2.0 2.0 ??CALCIUM,?SERUM?(mg/dL) 9.0 9.4 ??CALCIUM?SERUM?(CORRECTED)?(mg/dL) 9.0 9.5 ??CEA?(O*)?(ng/ml) 13.1?H ? ASSESSMENT/PLAN: Assessment and Plan: 69-year-old male Mr. Calvert with newly diagnosed synchronous transverse colon and rectal adenocarcinoma, presenting for neoadjuvant chemotherapy planning and management of comorbidities. Synchronous transverse colon and rectal adenocarcinoma Assessment: Patient was diagnosed with synchronous colon cancer in the upper rectum and mid-transverse colon, both spanning approximately 5 centimeters. Colonoscopy on 01/14/25 revealed ulcerated partially obstructing large masses in the transverse colon and sigmoid colon. CT scan on 03/02/25 confirmed the diagnosis and showed few subcentimeter mesorectal lymph nodes adjacent to the primary upper rectal mass. MRI pelvis on 03/25/25 staged the rectal cancer as [id number], noting tumorous sigmoid involvement of the rectal-sigmoid junction, clear mesorectal fascia, and absent sphincter involvement. Exploratory laparoscopy on 03/02/25 discovered that the sigmoid mass was in the midrectum, leading to of the planned extended left colectomy. on neoadjuvant chemotherapy with FOLFOX regimen cea is downtrending cont current treatment scan after 4 treatments RTC after that Diabetes mellitus, type 2 Assessment: Patient has well-controlled diabetes. Recently transitioned from Ozempic to Mounjaro for diabetes management and weight loss. Plan: - Continue Mounjaro, gradually increasing dosage - Monitor blood glucose levels Hypertension Assessment: Patient's blood pressure is reported as not bad, suggesting relatively controlled hypertension. Plan: - Continue current antihypertensive regimen (specific medications not mentioned) - Monitor blood pressure regularly Mobility issues Assessment: Patient uses a walker due to knee issues. History of prolonged immobility before hip replacements has led to difficulty regaining core strength. Plan: - Refer for physical therapy (consider in-home or outpatient options) - Encourage regular exercise as tolerated Right ear lesion Assessment: patient refuses follow up with dermatology Counselled and advised to follow up as it can be cancer on his ear and need biopsy ORDERS: Order # Description RETURN TO CLINIC: I reviewed the diagnosis, prognosis, and recommended treatment/procedure options with the patient (and/or their legal international representative), including the potential benefits, risks, side effects and alternative therapies. We also discussed the option of no treatment and the possibility of clinical trial participation, if applicable. All questions were addressed, and they demonstrated understanding. They provided informed consent to proceed with the proposed plan of care. BILLING AND COMPLIANCE: I reviewed external records from providers outside my specialty as summarized above. I spent a total of 50 minutes on this patient?s care on the day of their visit excluding time spent related to any billed procedures. This time includes time spent with the patient as well as time spent documenting in the medical record, reviewing patients records and tests, obtaining history, placing orders, communicating with other healthcare professionals, counseling the patient, family or caregiver, and/or care coordination for the diagnoses above. Electronically Signed by: {Object.Sanct_ID*PnP.NameFL@M}, {Object.Sanct_ID*PnP.Suffix@U} D: {Object.Sanct_Date} T: {Object.Sanct_Time} CC: PCP: Aileen Krishnamurthy Referring: Aileen Krishnamurthy This document was completed utilizing speech recognition software. Grammatical errors, random word insertions, pronoun errors, and incomplete sentences are an occasional consequence of this system due to software limitations, ambient noise, and hardware issues. Any formal questions or concerns about the content, text or information contained within the body of this dictation should be directly addressed to the provider for clarification.
[2025-06-03 09:26] LABS: Basophils # (Auto) 0.0 Thou/mm3 (0.0-0.2); Basophils % (Auto) 0 % (0-2.5); Eosinophils # (Auto) 0.1 Thou/mm3 (0.0-0.5); Eosinophils % (Auto) 2 % (0-10); Hematocrit 33.7 % (41.0-53.0); Hemoglobin 11.2 g/dL (13.5-16.0); Immature Granulocytes Auto 0.01 Thou/mm3 (0.00-0.00); Lymphocytes # (Auto) 1.3 Thou/mm3 (1.0-4.8); Lymphocytes % (Auto) 26 % (10-50); Mean Corpuscular HGB Conc 33.2 g/dl (31.0-37.0); Mean Corpuscular Hemoglobin 25.9 pg (25.0-35.0); Mean Corpuscular Volume 78 fL (80-100); Monocytes # (Auto) 0.4 Thou/mm3 (0.0-0.8); Monocytes % (Auto) 8 % (0-12); Neutrophils # (Auto) 3.3 Thou/mm3 (1.8-7.7); Neutrophils % (Auto) 65 % (37-80); Nucleated Red Blood Cell # 0.00 Thou/mm3 (0.00-0.00); Nucleated Red Blood Cell % 0 /100 WBC (0); Platelet Count 148 Thou/mm3 (140-440); RDW Standard Deviation 46.4 fL (35.1-43.9); Red Blood Count 4.32 Miln/mm3 (4.50-5.90); White Blood Count 5.1 Thou/mm3 (3.8-10.6)
[2025-06-03 09:46] LABS: Alanine Aminotransferase 26 U/L (10-49); Albumin, Serum 4.0 gm/dL (3.4-4.8); Albumin/Globulin Ratio 1.9 (1.2-2.2); Alkaline Phosphatase 53 U/L (46-116); Anion Gap 12 (7-16); Aspartate Amino Transferase 28 U/L (0-34); BUN/Creatinine Ratio 12 Ratio (12-20); Bilirubin,Total 0.8 mg/dL (0.3-1.2); Blood Urea Nitrogen 19 mg/dL (9-23); Calcium 9.1 mg/dL (8.3-10.6); Calcium (Corrected) 9.1 mg/dL (8.5-10.1); Carbon Dioxide 21.9 mMol/L (20.0-31.0); Chloride 106 mMol/L (98-107); Creatinine (Component) 1.6 mg/dL (0.6-1.3); Globulin 2.1 gm/dL (2.3-3.5); Glucose 149 mg/dL (74-106); Osmolality,Calculated 284 (275-295); Potassium 4.2 mMol/L (3.4-5.1); Sodium 140 mMol/L (136-145); Total Protein 6.1 gm/dL (5.7-8.2); eGFR 46 See Note
[2025-06-03 09:47] LABS: Carcinoembryonic Antigen 8.3 ng/mL (0.0-5.0)
[2025-06-06 09:04] LABS: Alanine Aminotransferase 22 U/L (10-49); Albumin, Serum 3.9 gm/dL (3.4-4.8); Albumin/Globulin Ratio 2.0 (1.2-2.2); Alkaline Phosphatase 54 U/L (46-116); Anion Gap 13 (7-16); Aspartate Amino Transferase 26 U/L (0-34); BUN/Creatinine Ratio 10 Ratio (12-20); Bilirubin,Total 0.8 mg/dL (0.3-1.2); Blood Urea Nitrogen 15 mg/dL (9-23); Calcium 8.8 mg/dL (8.3-10.6); Calcium (Corrected) 8.9 mg/dL (8.5-10.1); Carbon Dioxide 19.8 mMol/L (20.0-31.0); Chloride 107 mMol/L (98-107); Creatinine (Component) 1.5 mg/dL (0.6-1.3); Globulin 2.0 gm/dL (2.3-3.5); Glucose 146 mg/dL (74-106); Osmolality,Calculated 283 (275-295); Potassium 4.2 mMol/L (3.4-5.1); Sodium 140 mMol/L (136-145); Total Protein 5.9 gm/dL (5.7-8.2); eGFR 49 See Note
[2025-06-17 09:32] LABS: Basophils # (Auto) 0.0 Thou/mm3 (0.0-0.2); Basophils % (Auto) 0 % (0-2.5); Eosinophils # (Auto) 0.1 Thou/mm3 (0.0-0.5); Eosinophils % (Auto) 1 % (0-10); Hematocrit 36.3 % (41.0-53.0); Hemoglobin 11.7 g/dL (13.5-16.0); Immature Granulocytes Auto 0.01 Thou/mm3 (0.00-0.00); Lymphocytes # (Auto) 1.2 Thou/mm3 (1.0-4.8); Lymphocytes % (Auto) 31 % (10-50); Mean Corpuscular HGB Conc 32.2 g/dl (31.0-37.0); Mean Corpuscular Hemoglobin 26.5 pg (25.0-35.0); Mean Corpuscular Volume 82 fL (80-100); Monocytes # (Auto) 0.4 Thou/mm3 (0.0-0.8); Monocytes % (Auto) 10 % (0-12); Neutrophils # (Auto) 2.3 Thou/mm3 (1.8-7.7); Neutrophils % (Auto) 58 % (37-80); Nucleated Red Blood Cell # 0.00 Thou/mm3 (0.00-0.00); Nucleated Red Blood Cell % 0 /100 WBC (0); Platelet Count 125 Thou/mm3 (140-440); RDW Standard Deviation 53.7 fL (35.1-43.9); Red Blood Count 4.42 Miln/mm3 (4.50-5.90); White Blood Count 3.9 Thou/mm3 (3.8-10.6)
[2025-06-17 10:03] LABS: Alanine Aminotransferase 27 U/L (10-49); Albumin, Serum 3.9 gm/dL (3.4-4.8); Albumin/Globulin Ratio 1.9 (1.2-2.2); Alkaline Phosphatase 51 U/L (46-116); Anion Gap 13 (7-16); Aspartate Amino Transferase 32 U/L (0-34); BUN/Creatinine Ratio 11 Ratio (12-20); Bilirubin,Total 0.8 mg/dL (0.3-1.2); Blood Urea Nitrogen 17 mg/dL (9-23); Calcium 8.6 mg/dL (8.3-10.6); Calcium (Corrected) 8.7 mg/dL (8.5-10.1); Carbon Dioxide 20.1 mMol/L (20.0-31.0); Chloride 107 mMol/L (98-107); Creatinine (Component) 1.6 mg/dL (0.6-1.3); Globulin 2.1 gm/dL (2.3-3.5); Glucose 164 mg/dL (74-106); Osmolality,Calculated 284 (275-295); Potassium 4.0 mMol/L (3.4-5.1); Sodium 140 mMol/L (136-145); Total Protein 6.0 gm/dL (5.7-8.2); eGFR 46 See Note
[2025-06-17 10:04] LABS: Carcinoembryonic Antigen 6.8 ng/mL (0.0-5.0)
== END 2025-06-23 23:59 | disposition home or self-care (01) ==
LOC: SCTC 13:45
PROVIDERS: PCP Family Medicine; Referring Provider Family Medicine; Visit Provider Internal Medicine Hematology & Oncology
DX: Z51.11 Encounter for antineoplastic chemotherapy (principal); C19 Malignant neoplasm of rectosigmoid junction; C18.4 Malignant neoplasm of transverse colon; E11.9 Type 2 diabetes mellitus without complications; Z79.85 Long-term (current) use of injectable non-insulin antidiabetic drugs; I10 Essential (primary) hypertension; L98.8 Other specified disorders of the skin and subcutaneous tissue
CPT/HCPCS: 36415; 36430; 36591; 80053; 82378; 85025; 96361; 96366; 96367; 96368; 96372; 96375; 96413; 96415; 96416; 96523; 96549; 99212; A4216; J0640; J1100; J1453; J1642; J2405; J7030; J7050; J7060; J9190; J9263; G0463

== ENCOUNTER → 2025-07-15 | Outpatient (CLI) | payer MEDICARE, BC, SELFPAY ==
--- NOTE | 2025-07-15 11:00 | XR_ITS ---
Examination: CT chest with intravenous contrast CT abdomen with intravenous contrast CT pelvis with intravenous contrast CT chest without intravenous contrast CT abdomen without intravenous contrast CT pelvis without intravenous contrast 2-D coronal and sagittal reconstructions Time of exam: July 15, 2025 1102 hours Comparison January 20, 2025 INDICATIONS: Diagnosis malignant neoplasm rectum 6 months ago, undergoing chemotherapy, restaging CTDI: vol (mGy) : 50.7 DLP: (mGycm): 3161 Technique: Multiple axial images of the chest, abdomen and pelvis with intravenous contrast, 3.0 mm slice thickness. Images obtained post intravenous injection Isovue 30 cc Isovue-300 2-D sagittal and coronal reconstructions. Low dose protocols were performed. One or more of the following dose reduction techniques were used; automated exposure control, adjustment of the mA and/or KV according to patient size, use of iterative reconstruction technique. Findings: No thoracic aortic aneurysm dilatation No pulmonary artery emboli Heavy calcification left anterior descending coronary artery No paratracheal tracheobronchial or bronchopulmonary adenopathy No pneumonia or pulmonary edema or pleural disease No pulmonary nodules No interval liver or splenic lesions Cholelithiasis No pancreatic or adrenal mass Bilateral severe scar formation Bilateral renal calculi, the largest in the right kidney 8 mm, the largest in the left kidney 9 mm No pathologic abdominal lymphadenopathy No bowel obstruction Bilateral hip arthroplasty generates severe artifacts in the pelvis Marked abnormal thickening of the rectal wall, axial image 313, measuring up to 27 mm No perirectal lymph nodes are depicted or pelvic lymphadenopathy Severe osteopenia with advanced degenerative disc disease L3-L4 IMPRESSION: No mediastinal lymphadenopathy No pneumonia, pulmonary edema, pleural disease or pulmonary nodules Cholelithiasis No liver lesions depicted Severe scarring both kidneys with bilateral renal calculi No abdominal or pelvic lymphadenopathy depicted Marked abnormal thickening diffusely involving the rectal wall, consider MRI pelvis pre and postcontrast follow-up
== END | disposition home or self-care (01) ==
PROVIDERS: PCP Family Medicine; Referring Provider Internal Medicine Hematology & Oncology; Visit Provider Internal Medicine Hematology & Oncology
DX: N28.89 Other specified disorders of kidney and ureter (principal); N20.0 Calculus of kidney; K80.20 Calculus of gallbladder without cholecystitis without obstruction; C20 Malignant neoplasm of rectum
CPT/HCPCS: 71270; 74178; A4649; Q9967

== ENCOUNTER 2025-08-17 11:02 | Outpatient (RCR) | payer MEDICARE, BC, SELFPAY ==
[2025-07-29 08:39] LABS: Basophils # (Auto) 0.0 Thou/mm3 (0.0-0.2); Basophils % (Auto) 1 % (0-2.5); Eosinophils # (Auto) 0.0 Thou/mm3 (0.0-0.5); Eosinophils % (Auto) 1 % (0-10); Hematocrit 34.2 % (41.0-53.0); Hemoglobin 11.5 g/dL (13.5-16.0); Immature Granulocytes Auto 0.02 Thou/mm3 (0.00-0.00); Lymphocytes # (Auto) 1.1 Thou/mm3 (1.0-4.8); Lymphocytes % (Auto) 37 % (10-50); Mean Corpuscular HGB Conc 33.6 g/dl (31.0-37.0); Mean Corpuscular Hemoglobin 28.9 pg (25.0-35.0); Mean Corpuscular Volume 86 fL (80-100); Monocytes # (Auto) 0.3 Thou/mm3 (0.0-0.8); Monocytes % (Auto) 10 % (0-12); Neutrophils # (Auto) 1.5 Thou/mm3 (1.8-7.7); Neutrophils % (Auto) 50 % (37-80); Nucleated Red Blood Cell # 0.00 Thou/mm3 (0.00-0.00); Nucleated Red Blood Cell % 0 /100 WBC (0); Platelet Count 122 Thou/mm3 (140-440); RDW Standard Deviation 68.3 fL (35.1-43.9); Red Blood Count 3.98 Miln/mm3 (4.50-5.90); White Blood Count 3.1 Thou/mm3 (3.8-10.6)
[2025-07-29 08:55] LABS: Alanine Aminotransferase 25 U/L (10-49); Albumin, Serum 4.0 gm/dL (3.4-4.8); Albumin/Globulin Ratio 1.9 (1.2-2.2); Alkaline Phosphatase 60 U/L (46-116); Anion Gap 14 (7-16); Aspartate Amino Transferase 35 U/L (0-34); BUN/Creatinine Ratio 10 Ratio (12-20); Bilirubin,Total 0.8 mg/dL (0.3-1.2); Blood Urea Nitrogen 14 mg/dL (9-23); Calcium 9.2 mg/dL (8.3-10.6); Calcium (Corrected) 9.2 mg/dL (8.5-10.1); Carbon Dioxide 20.4 mMol/L (20.0-31.0); Chloride 109 mMol/L (98-107); Creatinine (Component) 1.4 mg/dL (0.6-1.3); Globulin 2.1 gm/dL (2.3-3.5); Glucose 104 mg/dL (74-106); Osmolality,Calculated 285 (275-295); Potassium 3.9 mMol/L (3.4-5.1); Sodium 143 mMol/L (136-145); Total Protein 6.1 gm/dL (5.7-8.2); eGFR 53 See Note
[2025-07-29 09:05] LABS: Carcinoembryonic Antigen 6.5 ng/mL (0.0-5.0)
[2025-08-12 09:41] LABS: Basophils # (Auto) 0.0 Thou/mm3 (0.0-0.2); Basophils % (Auto) 0 % (0-2.5); Eosinophils # (Auto) 0.0 Thou/mm3 (0.0-0.5); Eosinophils % (Auto) 1 % (0-10); Hematocrit 32.0 % (41.0-53.0); Hemoglobin 10.8 g/dL (13.5-16.0); Immature Granulocytes Auto 0.01 Thou/mm3 (0.00-0.00); Lymphocytes # (Auto) 1.4 Thou/mm3 (1.0-4.8); Lymphocytes % (Auto) 35 % (10-50); Mean Corpuscular HGB Conc 33.8 g/dl (31.0-37.0); Mean Corpuscular Hemoglobin 29.1 pg (25.0-35.0); Mean Corpuscular Volume 86 fL (80-100); Monocytes # (Auto) 0.3 Thou/mm3 (0.0-0.8); Monocytes % (Auto) 9 % (0-12); Neutrophils # (Auto) 2.2 Thou/mm3 (1.8-7.7); Neutrophils % (Auto) 55 % (37-80); Nucleated Red Blood Cell # 0.00 Thou/mm3 (0.00-0.00); Nucleated Red Blood Cell % 0 /100 WBC (0); Platelet Count 108 Thou/mm3 (140-440); RDW Standard Deviation 67.8 fL (35.1-43.9); Red Blood Count 3.71 Miln/mm3 (4.50-5.90); White Blood Count 4.0 Thou/mm3 (3.8-10.6)
[2025-08-12 10:13] LABS: Alanine Aminotransferase 21 U/L (10-49); Albumin, Serum 3.8 gm/dL (3.4-4.8); Albumin/Globulin Ratio 1.9 (1.2-2.2); Alkaline Phosphatase 64 U/L (46-116); Anion Gap 13 (7-16); Aspartate Amino Transferase 32 U/L (0-34); BUN/Creatinine Ratio 9 Ratio (12-20); Bilirubin,Total 0.9 mg/dL (0.3-1.2); Blood Urea Nitrogen 13 mg/dL (9-23); Calcium 9.0 mg/dL (8.3-10.6); Calcium (Corrected) 9.2 mg/dL (8.5-10.1); Carbon Dioxide 19.8 mMol/L (20.0-31.0); Chloride 108 mMol/L (98-107); Creatinine (Component) 1.5 mg/dL (0.6-1.3); Globulin 2.0 gm/dL (2.3-3.5); Glucose 131 mg/dL (74-106); Osmolality,Calculated 283 (275-295); Potassium 3.7 mMol/L (3.4-5.1); Sodium 141 mMol/L (136-145); Total Protein 5.8 gm/dL (5.7-8.2); eGFR 49 See Note
[2025-08-12 10:21] LABS: Carcinoembryonic Antigen 6.2 ng/mL (0.0-5.0)
== END 2025-08-23 23:59 | disposition home or self-care (01) ==
LOC: SCTC 11:02
PROVIDERS: PCP Family Medicine; Referring Provider Family Medicine; Visit Provider Internal Medicine Hematology & Oncology
DX: Z51.11 Encounter for antineoplastic chemotherapy (principal); C20 Malignant neoplasm of rectum; C18.4 Malignant neoplasm of transverse colon; E11.9 Type 2 diabetes mellitus without complications; I10 Essential (primary) hypertension; Z79.85 Long-term (current) use of injectable non-insulin antidiabetic drugs; L98.8 Other specified disorders of the skin and subcutaneous tissue
CPT/HCPCS: 36591; 80053; 82378; 85025; 96367; 96368; 96413; 96415; 96416; A4216; J0640; J1100; J1434; J1453; J1642; J2405; J3490; J7050; J7060; J9190; J9263

== ENCOUNTER 2025-09-19 15:43 | Outpatient (RCR) | payer MEDICARE, BC, SELFPAY ==
[2025-08-26 11:04] LABS: Basophils # (Auto) 0.0 Thou/mm3 (0.0-0.2); Basophils % (Auto) 0 % (0-2.5); Eosinophils # (Auto) 0.0 Thou/mm3 (0.0-0.5); Eosinophils % (Auto) 1 % (0-10); Hematocrit 30.1 % (41.0-53.0); Hemoglobin 10.1 g/dL (13.5-16.0); Immature Granulocytes Auto 0.01 Thou/mm3 (0.00-0.00); Lymphocytes # (Auto) 0.9 Thou/mm3 (1.0-4.8); Lymphocytes % (Auto) 32 % (10-50); Mean Corpuscular HGB Conc 33.6 g/dl (31.0-37.0); Mean Corpuscular Hemoglobin 29.1 pg (25.0-35.0); Mean Corpuscular Volume 87 fL (80-100); Monocytes # (Auto) 0.3 Thou/mm3 (0.0-0.8); Monocytes % (Auto) 9 % (0-12); Neutrophils # (Auto) 1.7 Thou/mm3 (1.8-7.7); Neutrophils % (Auto) 58 % (37-80); Nucleated Red Blood Cell # 0.00 Thou/mm3 (0.00-0.00); Nucleated Red Blood Cell % 0 /100 WBC (0); Platelet Count 81 Thou/mm3 (140-440); RDW Standard Deviation 63.5 fL (35.1-43.9); Red Blood Count 3.47 Miln/mm3 (4.50-5.90); White Blood Count 2.9 Thou/mm3 (3.8-10.6)
[2025-08-26 11:20] LABS: Alanine Aminotransferase 23 U/L (10-49); Albumin, Serum 3.8 gm/dL (3.4-4.8); Albumin/Globulin Ratio 2.0 (1.2-2.2); Alkaline Phosphatase 68 U/L (46-116); Anion Gap 11 (7-16); Aspartate Amino Transferase 34 U/L (0-34); BUN/Creatinine Ratio 11 Ratio (12-20); Bilirubin,Total 0.9 mg/dL (0.3-1.2); Blood Urea Nitrogen 16 mg/dL (9-23); Calcium 9.4 mg/dL (8.3-10.6); Calcium (Corrected) 9.6 mg/dL (8.5-10.1); Carbon Dioxide 22.8 mMol/L (20.0-31.0); Chloride 106 mMol/L (98-107); Creatinine (Component) 1.4 mg/dL (0.6-1.3); Globulin 1.9 gm/dL (2.3-3.5); Glucose 151 mg/dL (74-106); Osmolality,Calculated 283 (275-295); Potassium 4.0 mMol/L (3.4-5.1); Sodium 140 mMol/L (136-145); Total Protein 5.7 gm/dL (5.7-8.2); eGFR 53 See Note
[2025-08-26 11:22] LABS: Carcinoembryonic Antigen 5.8 ng/mL (0.0-5.0)
[2025-09-09 10:26] LABS: Basophils # (Auto) 0.0 Thou/mm3 (0.0-0.2); Basophils % (Auto) 0 % (0-2.5); Eosinophils # (Auto) 0.0 Thou/mm3 (0.0-0.5); Eosinophils % (Auto) 1 % (0-10); Hematocrit 29.2 % (41.0-53.0); Hemoglobin 10.3 g/dL (13.5-16.0); Immature Granulocytes Auto 0.01 Thou/mm3 (0.00-0.00); Lymphocytes # (Auto) 0.8 Thou/mm3 (1.0-4.8); Lymphocytes % (Auto) 29 % (10-50); Mean Corpuscular HGB Conc 35.3 g/dl (31.0-37.0); Mean Corpuscular Hemoglobin 30.9 pg (25.0-35.0); Mean Corpuscular Volume 88 fL (80-100); Monocytes # (Auto) 0.2 Thou/mm3 (0.0-0.8); Monocytes % (Auto) 8 % (0-12); Neutrophils # (Auto) 1.8 Thou/mm3 (1.8-7.7); Neutrophils % (Auto) 62 % (37-80); Nucleated Red Blood Cell # 0.00 Thou/mm3 (0.00-0.00); Nucleated Red Blood Cell % 0 /100 WBC (0); Platelet Count 86 Thou/mm3 (140-440); RDW Standard Deviation 59.3 fL (35.1-43.9); Red Blood Count 3.33 Miln/mm3 (4.50-5.90); White Blood Count 2.9 Thou/mm3 (3.8-10.6)
[2025-09-09 10:44] LABS: Alanine Aminotransferase 23 U/L (10-49); Albumin, Serum 3.8 gm/dL (3.4-4.8); Albumin/Globulin Ratio 1.8 (1.2-2.2); Alkaline Phosphatase 69 U/L (46-116); Anion Gap 15 (7-16); Aspartate Amino Transferase 43 U/L (0-34); BUN/Creatinine Ratio 11 Ratio (12-20); Bilirubin,Total 0.9 mg/dL (0.3-1.2); Blood Urea Nitrogen 16 mg/dL (9-23); Calcium 8.5 mg/dL (8.3-10.6); Calcium (Corrected) 8.7 mg/dL (8.5-10.1); Carbon Dioxide 18.4 mMol/L (20.0-31.0); Chloride 108 mMol/L (98-107); Creatinine (Component) 1.4 mg/dL (0.6-1.3); Globulin 2.1 gm/dL (2.3-3.5); Glucose 140 mg/dL (74-106); Osmolality,Calculated 284 (275-295); Potassium 3.8 mMol/L (3.4-5.1); Sodium 141 mMol/L (136-145); Total Protein 5.9 gm/dL (5.7-8.2); eGFR 53 See Note
[2025-09-09 10:47] LABS: Carcinoembryonic Antigen 7.0 ng/mL (0.0-5.0)
--- NOTE | 2025-09-26 13:29 | CTCFLWUP_ITS ---
Patient: MATTHEW COULTER : 1955 Page 4 of 6 FOLLOW UP NOTE DATE OF SERVICE: 09/19/2025 NAME: MATTHEW COULTER ACCOUNT: [id number] : 1955 AGE: 70 INTERVAL HISTORY: Patient was seen by surgery at [facility]. Patient was advised to stop chemotherapy and surgery is being planned in September. Patient is doing well. He has lost more than 100 pounds with Ozempic. ONCOLOGY HISTORY: DIAGNOSIS: Malignant neoplasm of rectum [ICD10] C20 DATE OF DIAGNOSIS: 03/02/2025 STAGE/TNM: Stage 4 TREATMENT HISTORY: Care?Plan Start?Date Cycle Day Intent Rectal?[place]?trial?FOLFOX?neoadjuvant 05/09/2025 1 14 Induction-Primary HISTORY OF PRESENT ILLNESS: Subjective: Chief Complaint Newly diagnosed synchronous transverse colon and rectal adenocarcinoma, lesion on right ear History of Present Illness Mr. Coulter, a 70-year-old male, presents with newly diagnosed synchronous transverse colon and rectal adenocarcinoma. He was recently diagnosed following a colonoscopy on 01/14/25 that revealed an ulcerated, partially obstructing large mass in the transverse colon and sigmoid colon, 14 centimeters from the anal verge. The patient underwent an exploratory laparoscopy with flexible sigmoidoscopy on 03/02/25, which discovered that the sigmoid mass was in the midrectum, leading to the operation being aborted. Subsequent imaging studies, including a CT scan on 03/02/25 and an MRI of the pelvis on 03/25/25, confirmed synchronous colon cancer in the upper rectum and mid-transverse colon, both spanning approximately 5 centimeters. The MRI showed rectal cancer stage [id number], with probable involvement of the rectal-sigmoid junction, clear mesorectal fascia, and absent sphincter involvement. Mr. Coulter also reports a lesion on his right ear, which was previously diagnosed as a fungal infection, though the final pathology report is not yet available. He is currently taking Mounjaro for diabetes management and weight loss, with the dosage being gradually increased. The patient reports that his diabetes is well-controlled, and his blood pressure is not bad. Functionally, Mr. Coulter is able to walk with the assistance of a walker due to knee issues. He has been non-mobile for many years before hip replacements, which has made it challenging to regain core strength. 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 The patient has a caregiver at home for 4 hours a week, assisting with hydrotherapy, circulation, blood pressure checks, medication management, and pill organization. He reports experiencing nausea as a side effect of Mounjaro and Xepi. Medications and Supplements - Mounjaro - Gradually increasing dosage - Causing weight loss - Causes nausea - Ozempic - Discontinued. Changed to Mounjaro. - Xepi - Causes nausea Review of Systems General: Positive for weight loss. Gastrointestinal: Positive for nausea. Musculoskeletal: Positive for difficulty walking, uses walker. Objective: Physical Examination Musculoskeletal: Patient is able to walk with the help of a walker. Laboratory, Imaging, and Diagnostic Test Results - Colonoscopy (01/14/2025): Ulcerated partially obstructing large mass in the transverse colon and sigmoid colon, 14 centimeters from the anal verge - CT scan (03/02/2025): - Synchronous colon cancer in the upper rectum and mid-transverse colon, both spanning approximately 5 centimeters - Few subcentimeter mesorectal lymph nodes adjacent to the primary upper rectal mass - CT chest: No evidence of disease, indeterminate enlarged right hilar lymph nodes, and pulmonary micronodules - MRI pelvis (03/25/2025): - Rectal cancer stage [id number] - Tumorous sigmoid probably involvement of the rectal-sigmoid junction - Mesorectal fascia is clear - Sphincter involvement is absent OTHER MEDICAL HISTORY/CONDITIONS: Colon cancer / rectal cancer Diabetes Hyperlipidemia HTN Blood clooting disorder Diabetes Anemia Hepatitis A - dx age 19 CVA - PE - 2002 DVT - 1985; 2002 Sleep apnea Neel hi replacement ; 2021 Kidney stent - 2016 FAMILY HISTORY: Mother:?Uterine/bladder?-?dx?75 Cancer History:?Mat grandmother - breast - dx age 90; mat aunt- colon-dx 60 SOCIAL HISTORY: 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 Tobacco?Use:?Denies ETOH?Use:?Denies Drug?Note:?Denies Social?History?Note:?Lives?with? MEDICATIONS: 1. ascorbic acid (vitamin C) - 1,000 mg 1 tab Daily 2. cholecalciferol (vitamin D3) - 2,000 unit 1 tab Daily 3. Compazine - 5 mg 5 mg Daily 4. CoQ10 SG 100 - 100-100 mg-unit 2 Capsule Daily 5. Farxiga - 10 mg 1 tab Daily 6. ferrous sulfate - 325 mg (65 mg iron) 1 tab Twice a Day 7. Lidocaine Viscous - 2 % 10 mL Daily 8. Lipitor - 80 mg 1 tab Daily 9. lisinopril - 40 mg 1 tab Daily 10. Maalox Advanced - 200-200-20 mg/5 mL 20 mL Daily 11. melatonin - 5 mg 1 tab Every day before sleep 12. metFORMIN - 500 mg 2 tab Twice a Day 13. Mounjaro - 15 mg/0.5 mL Weekly 14. multivitamin - 1 tab Daily 15. nystatin - 100,000 unit/mL 10 mL Daily 16. omega 8-iwi-ubc-fish oil - 1,000 mg (120 mg-180 mg) 1 Capsule Daily 17. ondansetron - 8 mg 8 mg Daily 18. Xarelto - 2.5 mg 1 tab Twice a Day Medications Last Reconciled by Fernanda Pillai MA on 09/19/2025 ALLERGIES: iv contrast REVIEW OF SYSTEMS: A complete 14-point review of systems was performed and is negative except as noted in interval history. PHYSICAL EXAMINATION: VITAL SIGNS: Temperature?97.4, B/P?117/76, Oxygen?Saturation?98% PAIN: 1 - Between no and mild pain ECOG Performance Status: 2 - Symptomatic; ambulatory; capable of self-care; >50% of waking hrs. not in bed GENERAL APPEARANCE: Appears well, in no apparent distress, appropriately interactive. HEENT: Normocephalic, no temporal wasting, normal conjunctiva, no scleral icterus, normal hearing, lips without lesions, neck normal range of motion. CARDIOVASCULAR: Not assessed. PULMONARY: Normal respiratory effort, no respiratory distress or use of accessory muscles, speaking in full sentences, no tachypnea. EXTREMITIES: No pedal edema or cyanosis. SKIN: Normal skin appearance. NEUROLOGIC: Alert and oriented x4. PSHYCHIATRIC: Appropriate affect, mood normal, behavior normal, intact thought and speech. LABORATORY DATA: I have personally reviewed and interpreted each of the patient?s relevant lab tests, abnormal findings are below: Date 08/26/25 09/09/25 ??WHITE?BLOOD?COUNT?(Thou/mm3) 2.9?L 2.9?L ??RED?BLOOD?COUNT?(Miln/mm3) 3.47?L 3.33?L ??HEMOGLOBIN?(gm/dl) 10.1?L 10.3?L ??HEMATOCRIT?(%) 30.1?L 29.2?L ??PLATELET?COUNT?(Thou/mm3) 81?L 86?L ??NEUTROPHILS?%,?AUTO?(%) 58 62 ??LYMPH?%,?AUTO?(%) 32 29 ??NEUTROPHILS,?AUTO?(Thou/mm3) 1.7?L 1.8 ??GLUCOSE,RANDOM?(mg/dL) ? 140?H ??BLOOD?UREA?NITROGEN?(mg/dL) ? 16 ??CREATININE?(mg/dL) ? 1.40?H ??SODIUM?(mmol/L) ? 141 ??POTASSIUM?(mmol/L) ? 3.8 ??CHLORIDE?(mmol/L) ? 108?H ??CrCl?(CandG)?(ml/min) ? 55.12 ??AST/SGOT?(Unit/L) ? 43?H ??ALT/SGPT?(Unit/L) ? 23 ??ALKALINE?PHOSPHATASE?(Unit/L) ? 69 ??BILIRUBIN,?TOTAL?(mg/dL) ? 0.9 ??PROTEIN?TOTAL?(gm/dl) ? 5.9 ??ALBUMIN,?SERUM?(gm/dl) ? 3.8 ??GLOBULIN?(gm/dl) ? 2.1?L ??ALBUMIN/GLOBULIN?RATIO ? 1.8 ??CALCIUM,?SERUM?(mg/dL) ? 8.5 ??CALCIUM?SERUM?(CORRECTED)?(mg/dL) ? 8.7 ??CEA?(O*)?(ng/ml) ? 7.0?H ASSESSMENT/PLAN: 70-year-old male Mr. Coulter with newly diagnosed synchronous transverse colon and rectal adenocarcinoma, presenting for neoadjuvant chemotherapy planning and management of comorbidities. Synchronous transverse colon and rectal adenocarcinoma Assessment: Patient was diagnosed with synchronous colon cancer in the upper rectum and mid-transverse colon, both spanning approximately 5 centimeters. Colonoscopy on 01/14/25 revealed ulcerated partially obstructing large masses in the transverse colon and sigmoid colon. CT scan on 03/02/25 confirmed the diagnosis and showed few subcentimeter mesorectal lymph nodes adjacent to the primary upper rectal mass. MRI pelvis on 03/25/25 staged the rectal cancer as [id number], noting tumorous sigmoid involvement of the rectal-sigmoid junction, clear mesorectal fascia, and absent sphincter involvement. Exploratory laparoscopy on 03/02/25 discovered that the sigmoid mass was in the midrectum, leading to of the planned extended left colectomy. on neoadjuvant chemotherapy with FOLFOX regimen and is now held in preparation for his surgery cea is downtrending. Naterra improved to CT DNA level of 1.04 Will review further chemotherapy once surgery is complete Diabetes mellitus, type 2 Assessment: Patient has well-controlled diabetes. Recently transitioned from Ozempic to Mounjaro for diabetes management and weight loss. Plan: - Continue Mounjaro, gradually increasing dosage - Monitor blood glucose levels Hypertension Assessment: Patient's blood pressure is reported as not bad, suggesting relatively controlled hypertension. Plan: - Continue current antihypertensive regimen (specific medications not mentioned) - Monitor blood pressure regularly Mobility issues Assessment: Patient uses a walker due to knee issues. History of prolonged immobility before hip replacements has led to difficulty regaining core strength. Continue physical therapy exercises Right ear lesion Patient's right ear lesion has improved He is following with the dermatology ORDERS: Order # Description [id number] CBC + Comprehensive Metabolic Panel + [facility] [id number] Lab Appointment [id number] CBC + Comprehensive Metabolic Panel + [facility] [id number] Lab Appointment RETURN TO CLINIC: I reviewed the diagnosis, prognosis, and recommended treatment/procedure options with the patient (and/or their legal field marketing representative), including the potential benefits, risks, side effects and alternative therapies. We also discussed the option of no treatment and the possibility of clinical trial participation, if applicable. All questions were addressed, and they demonstrated understanding. They provided informed consent to proceed with the proposed plan of care. BILLING AND COMPLIANCE: I reviewed external records from providers outside my specialty as summarized above. I spent a total of 50 minutes on this patient?s care on the day of their visit excluding time spent related to any billed procedures. This time includes time spent with the patient as well as time spent documenting in the medical record, reviewing patients records and tests, obtaining history, placing orders, communicating with other healthcare professionals, counseling the patient, family or caregiver, and/or care coordination for the diagnoses above. Electronically Signed by: Carlito Alberto MD T: 1:26 PM CC: PCP: Aileen Krishnamurthy Referring: Aileen Krishnamurthy This document was completed utilizing speech recognition software. Grammatical errors, random word insertions, pronoun errors, and incomplete sentences are an occasional consequence of this system due to software limitations, ambient noise, and hardware issues. Any formal questions or concerns about the content, text or information contained within the body of this dictation should be directly addressed to the provider for clarification.
== END 2025-09-23 23:59 | disposition home or self-care (01) ==
LOC: SCTC 15:43
PROVIDERS: PCP Family Medicine; Referring Provider Family Medicine; Visit Provider Internal Medicine Hematology & Oncology
DX: Z51.11 Encounter for antineoplastic chemotherapy (principal); C20 Malignant neoplasm of rectum; C18.4 Malignant neoplasm of transverse colon; E11.9 Type 2 diabetes mellitus without complications; I10 Essential (primary) hypertension; Z79.85 Long-term (current) use of injectable non-insulin antidiabetic drugs
CPT/HCPCS: 36591; 80053; 82378; 85025; 96367; 96368; 96413; 96415; 96416; 99212; A4216; J0640; J1100; J1434; J1642; J2405; J3490; J7050; J7060; J9190; J9263; G0463